=== PATIENT | female | born 1935 | race Caucasian/White ===

== ENCOUNTER 2017-05-14 10:20 | Emergency (ER) | payer MEDICARE, OTHER ==
--- NOTE | 2017-05-14 10:58 | RAD ---
RIGHT WRIST 3 VIEWS: HISTORY: Fall, right wrist pain. FINDINGS: There is a comminuted mildly displaced fracture involving the distal radius with involvement of the a rtificial surface. An avulsion fracture of the ulnar styloid is also noted. IMPRESSION: Distal right radial and ulnar fractures. POS: [facility]
[2017-05-14] MEDS ORDERED: Ibuprofen 800 MG TAB ONE (11:00)
--- NOTE | 2017-05-14 11:00 | RAD ---
RIGHT FOREARM 2 VIEWS: HISTORY: Fall, right rib pain. FINDINGS: There are fractures involving the distal radius and ulnar styloid. The distal radial fracture is com minuted and mildly displaced with extension into the articular surface. IMPRESSION: Distal right radial and ulnar fractures. POS: [facility]
== END 2017-05-14 11:25 | disposition home or self-care (01) ==
LOC: MADERS 10:20
DX: S52.611A Displaced fracture of right ulna styloid process, initial encounter for closed fracture (principal); S52.501A Unspecified fracture of the lower end of right radius, initial encounter for closed fracture; I10 Essential (primary) hypertension; E78.5 Hyperlipidemia, unspecified; E11.9 Type 2 diabetes mellitus without complications; Z79.84 Long term (current) use of oral hypoglycemic drugs; Z79.82 Long term (current) use of aspirin; Z79.899 Other long term (current) drug therapy; W01.0XXA Fall on same level from slipping, tripping and stumbling without subsequent striking against object, initial encounter; Y92.531 Health care provider office as the place of occurrence of the external cause
CPT/HCPCS: 29125

== ENCOUNTER 2019-04-26 14:11 | Outpatient (CLI) | payer MEDICARE, OTHER ==
--- NOTE | 2019-04-26 14:25 | RAD ---
EXAM: 2 views of the right clavicle HISTORY: Clavicle pain COMPARISON: None FINDINGS: There is no evidence of acute fracture or dislocation. No soft tissue swelling is seen. Th e visualized upper thorax is unremarkable. IMPRESSION: No evidence of acute osseous abnormality.
== END 2019-04-26 14:12 | disposition home or self-care (01) ==
LOC: MADRAD 14:11
PROVIDERS: ATTEND Family Medicine
DX: M89.8X1 Other specified disorders of bone, shoulder (principal)

== ENCOUNTER 2020-05-06 14:17 | Emergency (ER) | payer MEDICARE, OTHER ==
[2020-05-06] MEDS ORDERED: Lidocaine 1% 20 ML MDV ONE (14:37)
[2020-05-06] MEDS ORDERED: Bacitracin 1 PK ONE (14:43)
[2020-05-06] MEDS ORDERED: Cephalexin 500 MG CAP ONE (15:32)
== END 2020-05-06 15:42 | disposition home or self-care (01) ==
LOC: MADERS 14:17
DX: S01.312A Laceration without foreign body of left ear, initial encounter (principal); I10 Essential (primary) hypertension; E78.5 Hyperlipidemia, unspecified; E78.00 Pure hypercholesterolemia, unspecified; E11.40 Type 2 diabetes mellitus with diabetic neuropathy, unspecified; M81.0 Age-related osteoporosis without current pathological fracture; W45.8XXA Other foreign body or object entering through skin, initial encounter
CPT/HCPCS: 12013

== ENCOUNTER 2020-07-01 20:28 | Emergency (ER) | payer MEDICARE, OTHER | END 2020-07-01 21:34 | disposition home or self-care (01) | LOC: MADERS 20:28 | DX: S01.21XA Laceration without foreign body of nose, initial encounter (principal); E78.5 Hyperlipidemia, unspecified; E11.40 Type 2 diabetes mellitus with diabetic neuropathy, unspecified; E78.00 Pure hypercholesterolemia, unspecified; I10 Essential (primary) hypertension; M81.0 Age-related osteoporosis without current pathological fracture; W22.8XXA Striking against or struck by other objects, initial encounter | CPT/HCPCS: 12001 ==

== ENCOUNTER 2020-08-05 13:41 | Emergency (ER) | payer OTHER, MEDICARE | END 2020-08-05 14:25 | disposition home or self-care (01) | LOC: MADERS 13:41 | DX: S00.83XA Contusion of other part of head, initial encounter (principal); I10 Essential (primary) hypertension; E78.5 Hyperlipidemia, unspecified; E78.00 Pure hypercholesterolemia, unspecified; M81.0 Age-related osteoporosis without current pathological fracture; E11.40 Type 2 diabetes mellitus with diabetic neuropathy, unspecified; Z79.84 Long term (current) use of oral hypoglycemic drugs; Z79.899 Other long term (current) drug therapy; W01.10XA Fall on same level from slipping, tripping and stumbling with subsequent striking against unspecified object, initial encounter | CPT/HCPCS: 99283 ==